=== PATIENT | female | born 1995 | race Caucasian/White ===

== ENCOUNTER 2021-10-15 18:47 | Emergency (ER) | payer MEDICAID ==
[~2021-10-15] VITALS: Ht 162.6 cm; Wt 95.0 kg
[2021-10-15 19:18] LABS: CLARITY URINE CLOUDY (CLEAR); COLOR URINE YELLOW (YELLOW); KETONES URINE TRACE (NEGATIVE); LEUKOCYTE ESTERASE URINE 2+ (NEGATIVE); NITRITE URINE NEGATIVE (NEGATIVE); OCCULT BLOOD URINE 2+ (NEGATIVE); PROTEIN URINE 3+ (NEGATIVE); SPECIFIC GRAVITY URINE 1.025 (1.005-1.030); UROBILINOGEN URINE 0.2 E.U./dL (0.2-1.0)
[2021-10-15] MEDS ORDERED: NITR-87 MT (20:39)
[2021-10-15] MEDS ORDERED: NITROFURANTOIN 100MG M/M CAPSULE PO NR (20:45)
[2021-10-15 21:15] VITALS: BP 121/69
== END 2021-10-15 21:20 | disposition home or self-care (01) ==
LOC: ER 18:47
DX: N39.0 Urinary tract infection, site not specified (principal); R31.29 Other microscopic hematuria
CPT/HCPCS: 81003; 81025; 87077; 87186; 99283

== ENCOUNTER 2023-09-02 09:43 | Emergency (ER) | payer MEDICAID ==
[~2023-09-02] VITALS: Ht 160 cm; Wt 106.6 kg
[~2023-09-02 09:43] MED LIST: NITR-87 MT
[2023-09-02 09:58] VITALS: BP 119/77; PULSE 76; RESP 16; TEMP 98.6; O2SAT 98
[2023-09-02] MEDS ORDERED: IBUP-2030 MT (10:06)
== END 2023-09-02 10:23 | disposition home or self-care (01) ==
LOC: ER 09:43
DX: L02.412 Cutaneous abscess of left axilla (principal)
CPT/HCPCS: 99282